=== PATIENT | female | born 2005 | race Caucasian/White ===

== ENCOUNTER 2024-08-06 05:14 | Emergency (ER) | payer OTHER, SELFPAY ==
[2024-08-06 05:18] VITALS: BP 139/86; PULSE 111; TEMP 36.9; O2SAT 100; BMI 21.5
--- NOTE | 2024-08-06 05:34 | ED.FEMALEGU1 ---
HPI - Female Genitourinary General Chief complaint: OB/Uterine Contractions Stated complaint: VAGINAL BLEEDING Time Seen by Provider: 08/06/24 05:29 Source: patient Mode of arrival: walk-in Limitations: no limitations History of Present Illness HPI Narrative: [id number] . 7 weeks . Knows that she is miscarrying now for one week. Found out by her Adolescent Coordinator. Presents because of pain. States found out she was having miscarriage after ultrasound. Has nausea because of the pain. No fever or chills. Feels like intense menstral cramps Related Data Home Medications ?Medication ?Instructions ?Recorded ?Confirmed No Known Home Medications 08/06/24 08/06/24 Allergies Allergy/AdvReac Type Severity Reaction Status Date / Time cefdinir Allergy Unknown Verified 08/06/24 05:21 Penicillins Allergy Unknown Verified 08/06/24 05:21 Review of Systems ROS Status of ROS 10 or more systems reviewed and unremarkable except as noted in history and below PFSH PFSH Social History Little interest or pleasure in doing things: not at all Feeling down, depressed, or hopeless: not at all Exam Constitutional Vital Signs, click to edit/add: Last Vital Signs Temp 98.4 F 08/06/24 05:18 Pulse 111 H 08/06/24 06:06 Resp 24 H 08/06/24 06:06 BP 139/86 08/06/24 05:18 Pulse Ox 100 08/06/24 06:06 O2 Del Method Room Air 08/06/24 05:18 Common normals: no apparent distress, average body habitus, oriented x3, no limitations, healthy appearing, alert and well nourished [facility] Common normals: normocephalic and head/scalp atraumatic Eye Common normals: PERRL, EOMs intact bilaterally and conjunctivae normal Respiratory Common normals: normal respiratory effort, no retractions and no use of accessory muscles Cardio Common normals: S1 normal heart sound and S2 normal heart sound Rate: tachycardic GI Common normals: Normal to inspection, nondistended, normoactive bowel sounds present, soft to palpation and non-tender Extremity Common normals: normal to inspection and full ROM Neuro Common normals: oriented x3, CN's II-XII intact bilaterally, moves all extremities and no focal motor deficits Psych Appearance: grossly normal Course Vital Signs Vital signs: Vital Signs Temperature 98.4 F 08/06/24 05:18 Pulse Rate 111 H 08/06/24 05:18 Respiratory Rate 22 H 08/06/24 05:18 Blood Pressure 139/86 08/06/24 05:18 Pulse Oximetry 100 08/06/24 05:18 Oxygen Delivery Method Room Air 08/06/24 05:18 Temperature 98.4 F 08/06/24 05:18 Pulse Rate 111 H 08/06/24 06:06 Respiratory Rate 24 H 08/06/24 06:06 Blood Pressure 139/86 08/06/24 05:18 Pulse Oximetry 100 08/06/24 06:06 Oxygen Delivery Method Room Air 08/06/24 05:18 MDM - Female Genitourinary MDM Narrative Medical decision making narrative: 7 weeks . [id number] found out last week by OB she was is miscarrying. She did have an ultrasound performed as part of the diagnosis . Now presents complaining of pain from the miscarriage. Nausea from the pain. No light headiness or fever. IV established , labs drawn and patient medicated with morphine and zofran patient re examined and continues to complain of pain. Additional pain medication ordered. care transferred to oncoming physician to continue care Lab Data Labs: Lab Results 08/06/24 Range/Units 05:45 WBC 13.3 H (4.0-11.0) 10^3/uL RBC 4.49 (4.20-5.40) 10^6/uL Hgb 10.8 L (12.0-16.0) g/dL Hct 34.1 L (36.0-48.0) % MCV 75.9 L (81.0-99.0) fL MCH 24.1 L (26.7-34.0) pg MCHC 31.7 (29.9-35.2) g/dL RDW 18.2 H (11.0-15.0) % Plt Count 248 (150-450) 10^3/uL MPV 9.4 L (9.5-13.5) fL Neut % (Auto) 82.6 H (43.0-75.0) % Lymph % (Auto) 9.8 L (20.5-60.0) % Hancock % (Auto) 5.3 (1.7-12.0) % Eos % (Auto) 1.7 (0.9-7.0) % Baso % (Auto) 0.3 (0.2-2.0) % Neut # (Auto) 11.0 H (1.4-6.5) 10^3/uL Lymph # (Auto) 1.3 (1.2-3.8) 10^3/uL Hancock # (Auto) 0.7 (0.3-0.8) 10^3/uL Eos # (Auto) 0.2 (0.0-0.7) 10^3/uL Baso # (Auto) 0.0 (0.0-0.1) 10^3/uL Abs Immat Gran (auto) 0.04 H (0.00-0.03) 10^3/uL Imm/Tot Granulo (auto) 0.3 (0.0-0.5) % Sodium 144 (136-145) mmol/L Potassium 3.5 (3.5-5.1) mmol/L Chloride 107 (98-107) mmol/L Carbon Dioxide 25.3 (21.0-32.0) mmol/L Anion Gap 15.2 BUN 9.0 (7.0-18.0) mg/dL Creatinine 0.81 (0.55-1.02) mg/dL Est GFR ( Amer) >60 (>=60 mL/min/1.73m^2) Est GFR (Non-Af Amer) >60 (>=60 mL/min/1.73m^2) BUN/Creatinine Ratio 11.1 Glucose 97 (74-106) mg/dL Calcium 8.8 (8.5-10.1) mg/dL HCG, Quant 5998 mIU/mL Discharge Plan Discharge Chief Complaint: OB/Uterine Contractions Patient Disposition: Still a Patient Prescriptions / Home Meds: No Action No Known Home Medications Print Language: Persian Referrals: Physician,Non-Staff, MD [Primary Care Provider] - 1 week
[2024-08-06 05:50] LABS: Basophils Percent Auto 0.3 % (0.2-2.0); Eosinophils Absolute Auto 0.2 10^3/uL (0.0-0.7); Eosinophils Percent Auto 1.7 % (0.9-7.0); Hematocrit 34.1 % (36.0-48.0); Hemoglobin 10.8 g/dL (12.0-16.0); Immature Granulocytes Abs Auto 0.04 10^3/uL (0.00-0.03); Immature Granulocytes Pct Auto 0.3 % (0.0-0.5); Lymphocytes Absolute Auto 1.3 10^3/uL (1.2-3.8); Lymphocytes Percent Auto 9.8 % (20.5-60.0); Mean Corpuscular HGB Conc 31.7 g/dL (29.9-35.2); Mean Corpuscular Hemoglobin 24.1 pg (26.7-34.0); Mean Corpuscular Volume 75.9 fL (81.0-99.0); Mean Platelet Volume 9.4 fL (9.5-13.5); Monocytes Absolute Auto 0.7 10^3/uL (0.3-0.8); Monocytes Percent Auto 5.3 % (1.7-12.0); Neutrophils Percent Auto 82.6 % (43.0-75.0); Platelet Count 248 10^3/uL (150-450); Red Blood Count 4.49 10^6/uL (4.20-5.40); Red Cell Distribution Width 18.2 % (11.0-15.0); White Blood Count 13.3 10^3/uL (4.0-11.0)
[2024-08-06] MEDS: ONDANSETRON PF 4 MG/2 ML VIAL IV (06:02)
[2024-08-06] MEDS: MORPHINE SULFATE 4 MG/ML VIAL IV (06:02)
[2024-08-06 06:06] VITALS: PULSE 111; O2SAT 100
[2024-08-06 06:30] LABS: Anion Gap 15.2; BUN Creatinine Ratio 11.1; Calcium 8.8 mg/dL (8.5-10.1); Carbon Dioxide 25.3 mmol/L (21.0-32.0); Chloride 107 mmol/L (98-107); Estimated GFR (African America >60 (>=60 mL/min/1.73m^2); Estimated GFR (Non-African Ame >60 (>=60 mL/min/1.73m^2); Glucose 97 mg/dL (74-106); HCG Quantitative 5998 mIU/mL; Potassium 3.5 mmol/L (3.5-5.1); Sodium 144 mmol/L (136-145)
[2024-08-06 06:44] VITALS: PULSE 107; O2SAT 99
[2024-08-06] MEDS: HYDROMORPHONE HCL 0.5 MG/0.5 ML SYRINGE IV (07:07)
[2024-08-06] MEDS: KETOROLAC TROMETHAMINE 30 MG/ML VIAL IVP (08:10)
== END 2024-08-06 08:15 | disposition home or self-care (01) ==
PROVIDERS: Emergency Provider Internal Medicine
DX: O03.9 Complete or unspecified spontaneous abortion without complication (principal)
CPT/HCPCS: 36415; 80048; 84702; 85025; 96374; 96375; 99284; J1171; J1885; J2270; J2405